=== PATIENT | female | born 1930 | race Caucasian/White ===

== ENCOUNTER → 2019-03-21 | Outpatient (CLI) | payer OTHER | LOC: SJCVCIMAG 15:15 | DX: I73.9 Peripheral vascular disease, unspecified (principal); S81.809A Unspecified open wound, unspecified lower leg, initial encounter ==

== ENCOUNTER → 2019-03-21 | Outpatient (CLI) | payer OTHER | LOC: HYPER 11:22 | DX: L97.812 Non-pressure chronic ulcer of other part of right lower leg with fat layer exposed (principal); S80.11XA Contusion of right lower leg, initial encounter; L84 Corns and callosities; E78.5 Hyperlipidemia, unspecified; G30.9 Alzheimer's disease, unspecified; I10 Essential (primary) hypertension; I25.10 Atherosclerotic heart disease of native coronary artery without angina pectoris; I48.91 Unspecified atrial fibrillation; R26.89 Other abnormalities of gait and mobility; R23.8 Other skin changes; M19.90 Unspecified osteoarthritis, unspecified site; F02.80 Dementia in other diseases classified elsewhere, unspecified severity, without behavioral disturbance, psychotic disturbance, mood disturbance, and anxiety; F41.9 Anxiety disorder, unspecified; F32.9 Major depressive disorder, single episode, unspecified; Z79.82 Long term (current) use of aspirin; W19.XXXA Unspecified fall, initial encounter; Y93.89 Activity, other specified; Y92.89 Other specified places as the place of occurrence of the external cause; Y99.8 Other external cause status ==

== ENCOUNTER → 2019-03-28 | Outpatient (CLI) | payer OTHER | LOC: HYPER 13:21 | DX: L97.812 Non-pressure chronic ulcer of other part of right lower leg with fat layer exposed (principal); S80.11XD Contusion of right lower leg, subsequent encounter; G30.9 Alzheimer's disease, unspecified; R26.89 Other abnormalities of gait and mobility; R54 Age-related physical debility; R23.8 Other skin changes; F41.9 Anxiety disorder, unspecified; F32.9 Major depressive disorder, single episode, unspecified; L84 Corns and callosities; E78.5 Hyperlipidemia, unspecified; I10 Essential (primary) hypertension; I25.10 Atherosclerotic heart disease of native coronary artery without angina pectoris; I48.91 Unspecified atrial fibrillation; H26.9 Unspecified cataract; M19.90 Unspecified osteoarthritis, unspecified site; Z91.81 History of falling; Z79.82 Long term (current) use of aspirin; X58.XXXD Exposure to other specified factors, subsequent encounter ==

== ENCOUNTER → 2019-04-11 | Outpatient (CLI) | payer OTHER | LOC: HYPER 11:20 | DX: L97.812 Non-pressure chronic ulcer of other part of right lower leg with fat layer exposed (principal); S80.11XD Contusion of right lower leg, subsequent encounter; R26.89 Other abnormalities of gait and mobility; R54 Age-related physical debility; R23.8 Other skin changes; E78.5 Hyperlipidemia, unspecified; I10 Essential (primary) hypertension; I25.10 Atherosclerotic heart disease of native coronary artery without angina pectoris; I48.91 Unspecified atrial fibrillation; H26.9 Unspecified cataract; M19.90 Unspecified osteoarthritis, unspecified site; G30.9 Alzheimer's disease, unspecified; F02.80 Dementia in other diseases classified elsewhere, unspecified severity, without behavioral disturbance, psychotic disturbance, mood disturbance, and anxiety; F41.9 Anxiety disorder, unspecified; F32.9 Major depressive disorder, single episode, unspecified; Z91.81 History of falling; Z79.82 Long term (current) use of aspirin; X58.XXXD Exposure to other specified factors, subsequent encounter ==